=== PATIENT | male | born 1970 | race Caucasian/White ===

== ENCOUNTER 2017-03-23 23:32 | Emergency (ER) | payer SELFPAY ==
[~2017-03-23] VITALS: Ht 162.6 cm; Wt 65.0 kg
[~2017-03-23 23:32] MED LIST: INDOCIN 25MG CA25 MG PO; NORCO 325 MG-7.1 TAB PO
[2017-03-23 23:38] VITALS: TEMP 97.8
[2017-03-24 00:28] LABS: BASO % 0.4 % (0.0-2.0); EOS # 0.3 (0.0-0.7); EOS % 3.1 % (0-4.0); GRAN # 5.1 (1.4-6.5); GRAN % 61.6 % (42.2-75.2); LYMPH # 2.3 (1.2-3.4); LYMPH % 27.7 % (20.0-51.0); MEAN CELL VOLUME 75 fl (80.0-100.0); MEAN CORPUSCULAR HGB CONC 32 g/dl (33.0-37.0); MEAN PLATELET VOLUME 8.7 fl (7.4-10.4); MONO # 0.6 (0.1-0.6); MONO % 6.8 % (1.7-9.3); PLATELET COUNT 198 K/mm3 (130-400); RED BLOOD COUNT 4.32 M/mm3 (4.20-5.60); WHITE BLOOD COUNT 8.3 K/mm3 (4.8-10.8)
[2017-03-24 00:29] LABS: HEMATOCRIT 32.2 % (42.0-52.0); HEMOGLOBIN 10.3 g/dl (13.5-18.0); MEAN CORPUSCULAR HEMOGLOBIN 24 pg (27.0-31.0)
[2017-03-24 00:36] LABS: ADJUSTED CALCIUM 8.5 mg/dL (8.4-10.2); ALANINE AMINOTRANSFERASE 19 U/L (21-72); ALBUMIN 4.5 gm/dL (3.5-5.0); ALKALINE PHOSPHATASE 66 U/L (50-136); ANION GAP 10 mmol/L (7-16); BILIRUBIN,TOTAL 0.6 mg/dL (0.0-1.0); BLOOD UREA NITROGEN 13 mg/dL (9-20); CALCIUM 8.9 mg/dL (8.4-10.2); CARBON DIOXIDE 23 mmol/L (22-30); CHLORIDE 105 mmol/L (98-107); CREATININE, serum 0.85 mg/dL (0.66-1.25); GLUCOSE 164 mg/dL (74-106); MAGNESIUM 2.2 mg/dL (1.6-2.3); PHOSPHOROUS 2.6 mg/dL (2.5-4.5); POTASSIUM 3.5 mmol/L (3.4-5.0); SODIUM 137 mmol/L (137-145); TOTAL PROTEIN 7.8 gm/dL (6.4-8.2)
[2017-03-24 00:48] LABS: B-TYPE NATRIURETIC PEPTIDE 30 pg/mL (0-125)
[2017-03-24 00:50] LABS: TROPONIN-I < 0.012 ng/mL (0.000-0.034)
[2017-03-24] MEDS ORDERED: LOPRESSOR 225 MG/TAB PO (03:39)
[2017-03-24] MEDS ORDERED: IRON325 M2 PO (03:39)
[2017-03-24 03:59] VITALS: BP 142/102; PULSE 77
== END 2017-03-24 04:00 | disposition home or self-care (01) ==
LOC: COL.ER 23:32
PROVIDERS: Emergency Medicine
DX: R00.2 Palpitations (principal); D64.9 Anemia, unspecified; I10 Essential (primary) hypertension; F17.200 Nicotine dependence, unspecified, uncomplicated
CPT/HCPCS: J7030

== ENCOUNTER 2017-07-23 08:58 | Day surgery (SDC) | payer SELFPAY ==
[~2017-07-23] VITALS: Ht 160 cm; Wt 69.0 kg
[~2017-07-23 08:58] MED LIST changes: +IRON325 M2 PO; +LOPRESSOR 225 MG/TAB PO
[2017-07-23] MEDS ORDERED: CARAFATE 1GM1 G PO (09:19)
[2017-07-23] MEDS ORDERED: PRIL40 PO (09:19)
[2017-07-23 09:39] VITALS: BP 152/88; PULSE 80; TEMP 97.8
[2017-07-23 10:50] VITALS: BP 118/87; PULSE 76
[2017-07-23 11:05] VITALS: BP 113/85; PULSE 81; TEMP 98.6
[2017-07-23 11:20] VITALS: BP 131/93; PULSE 85
[2017-07-23 11:35] VITALS: BP 114/82; PULSE 73
[2017-07-23 12:05] VITALS: BP 110/75; PULSE 76
== END 2017-07-23 12:23 | disposition home or self-care (01) ==
LOC: SDCO 08:58
DX: K21.0 Gastro-esophageal reflux disease with esophagitis (principal); K44.9 Diaphragmatic hernia without obstruction or gangrene; K64.1 Second degree hemorrhoids; D64.9 Anemia, unspecified; K92.1 Melena; Z87.891 Personal history of nicotine dependence
CPT/HCPCS: OP; J2250; J2405; J3010; J7030

== ENCOUNTER → 2020-09-12 | Outpatient (CLI) | payer SELFPAY ==
[~2020-09-12] MED LIST changes: +CARAFATE 1GM1 G PO; +PRIL40 PO
== END ==
LOC: DIA.ED 09:04
DX: E11.9 Type 2 diabetes mellitus without complications (principal); Z79.84 Long term (current) use of oral hypoglycemic drugs; I10 Essential (primary) hypertension; E78.5 Hyperlipidemia, unspecified
CPT/HCPCS: G0108

== ENCOUNTER → 2020-09-25 | Outpatient (CLI) | payer SELFPAY | LOC: DIA.ED 12:50 | DX: E11.9 Type 2 diabetes mellitus without complications (principal); Z79.84 Long term (current) use of oral hypoglycemic drugs; I10 Essential (primary) hypertension; E78.5 Hyperlipidemia, unspecified | CPT/HCPCS: G0108 ==